=== PATIENT | male | born 1950 | race Caucasian/White ===

== ENCOUNTER → 2021-03-25 20:02 | Outpatient (ROUT) | payer MEDICARE, OTHER, SELFPAY ==
[2021-03-25 21:18] LABS: COVID19 -Nasal RAPID Negative (Negative)
== END ==
PROVIDERS: PCP Family Medicine; Visit Provider Specialist
DX: Z20.822 Contact with and (suspected) exposure to COVID-19 (principal)
CPT/HCPCS: 87635

== ENCOUNTER 2021-03-28 11:05 | Day surgery (SDC) | payer MEDICARE, OTHER, SELFPAY ==
[2021-03-26 10:42] VITALS: BMI 48.0
== END 2021-03-28 11:10 | disposition home or self-care (01) ==
PROVIDERS: Referring Provider Specialist; Visit Provider Specialist
DX: Z53.09 Procedure and treatment not carried out because of other contraindication (principal)

== ENCOUNTER 2021-04-04 10:42 | Day surgery (SDC) | payer MEDICARE, OTHER, SELFPAY ==
[2021-03-28 14:25] VITALS: BMI 48.0
--- NOTE | 2021-04-04 | PATH_ITS ---
[facility] Accession Number: [id number] . 01 Material submitted: . PART A: breast - RIGHT AXILLARY LYMPH NODE PART B: breast - RIGHT AXILLARY LYMPH NODE . 01 Clinical history: . CLINICAL: HX MELANOMA BACK. DIFFUSE ADENOPATHY (MELANOMA EXCISED) YEARS AGO . 01 Diagnosis: A, B. Right Axillary Lymph Nodes, Excision: Benign lymph nodes with fatty changes, and reactive sinus histiocytosis, see microscopic description. Negative for hematolymphoid malignancy. Negative for metastatic carcinoma or malignant melanoma (history of melanoma). [facility] 04/14/2021 1247 Local . 01 Comment: Concurrent flow cytometry did not reveal an abnormal B-cell or atypical T-cell population (see complete flow cytometry report, [id number], for details). . 01 Electronically signed: . Poli Morales MD, Pathologist NPI- [id number] . 01 Gross description: . A. The specimen is received in formalin, labeled right axillary lymph node, and consists of an 8.0 x 2.5 x 2.0 cm prajapati-yellow fragment of adipose tissue which is sectioned to reveal two lymph nodes measuring 2.0 x 1.5 x 1.0 cm and 3.0 x 1.5 x 1.0 cm. The lymph nodes are entirely submitted. . A1-A2: Smaller lymph node. A3-A5: Larger lymph node. . B. The specimen is received in formalin, labeled right axillary lymph node, and consists of a 3.0 x 1.2 x 0.5 cm prajapati lymph node which is trisected and entirely submitted in cassette B1. . Also received are two alcohol-fixed slides and two dry slides labeled right breast. These slides are forwarded to Histology and Cytology. (EA:[id number]) /[facility] 04/05/2021 [facility]9 Local . 01 Microscopic: . Microscopic examination of the lymph nodes reveals extensive replacement by adipose tissue. In areas of preserved lymphoid tissue, there are reactive changes consistent with reactive sinus histiocytosis. There are open sinuses and rare collections of histiocytes with pigment were noted. Due to the patient's history of malignant melanoma, and to better evaluate the architecture (and rule out the possibility of an occult hematolymphoid malignancy), a panel of immunostains is performed with the following results: . CD3 (A5) - T-lymphocytes positive. CD5 (A5) - T-lymphocytes positive. Negative for aberrant coexpression on the B-lymphocytes. CD20 (A5) - B-lymphocytes positive. CD23 (A5) - Follicular dendritic meshwork positive, maintained. BCL2 (A5) - T-lymphocytes positive, negative for aberrant coexpression on the B-lymphocytes and negative on the germinal centers of the reactive follicles. BCL6 (A5) - Few lymphoid follicles positive. Ki-67 (A5) - Low proliferation on the lymphocytes (germinal centers positive). Cyclin D1 (A5) - Negative for aberrant coexpression on the B-lymphocytes. Valle and lambda light chain immunostains: Subsets of plasma cells are positive, supporting reactive, polyclonal plasma cells. JANNA (fontaine epithelial marker, A5) - Negative. This result does not support metastatic carcinoma. HMB45 (A5 and B1) - Negative. This result does not support metastatic malignant melanoma. CD68 (A5, B1) - Histiocytes positive. . . Overall, these immunohistochemical results support benign lymph nodes with reactive changes, including reactive sinus histiocytosis. There is no evidence for metastatic malignant melanoma and no evidence for metastatic carcinoma. . Clinical and radiologic correlation is recommended. . * This test was developed and its performance characteristics determined by [employer]. It has not been cleared or approved by the U.S. Food and Drug Administration. The FDA has determined that such clearance or approval is not necessary. This test is used for clinical purposes. It should not be regarded as investigational or for research. . 01 Pathologist provided ICD-10: R59.9 . 01 CPT . 227944, 259350, J79668, T46959 Performed at: 01 [facility] [address] [place] [address] [address], [place], [place] [id number] MD Michael Duran MD Phone: [phone]
[2021-04-04 11:25] VITALS: BP 155/94; PULSE 72; RESP 13; TEMP 36.8; O2SAT 97; BMI 48.0
[2021-04-04 11:34] LABS: COVID19 -Nasal RAPID Negative (Negative)
[2021-04-04] MEDS: LACTATED RINGERS 1,000 ML 42 ML IV (11:34)
--- NOTE | 2021-04-04 12:35 | PM.PREOP ---
Pre-operative Note COVID-19 COVID-19 status: Negative Result date/Date tested (Pos, Neg/Pending): 04/04/21 Interval Note History & Physical reviewed/Exam performed by Physician: Yes Changes to H&P: No
[2021-04-04] MEDS: CEFAZOLIN 2 GM/100 ML FROZ.PIGGY IV (12:54)
--- NOTE | 2021-04-04 13:13 | SUR.OPER ---
Supine on padded OR bed, head on pillow, arms secured on padded arm boards at <90 degrees abduction, legs uncrossed, safety belt at thigh, tape over blanket over lower legs.
[2021-04-04] MEDS: BUPIVACAINE 0.5% (PF) VIAL 30 ML INJ (13:19)
[2021-04-04 14:08] VITALS: BP 135/76; PULSE 80; RESP 10; TEMP 36.2; O2SAT 95
[2021-04-04 14:13] VITALS: BP 138/74; PULSE 82; RESP 10; O2SAT 97
[2021-04-04 14:18] VITALS: BP 140/79; PULSE 77; RESP 10; O2SAT 97
[2021-04-04 14:23] VITALS: BP 138/83; PULSE 74; RESP 10; TEMP 36.6; O2SAT 96
[2021-04-04 14:28] VITALS: BP 140/80; PULSE 77; RESP 12; TEMP 36.6; O2SAT 97
--- NOTE | 2021-04-04 17:07 | PM.OP.1 ---
Operative Date/Time/Diagnoses Date of procedure: 04/04/21 Time of procedure: 14:00 Pre-op diagnosis: Enlarged lymph nodes diffuse Post-op diagnosis: same Procedure & Clinicians Procedure: Excision of right axillary deep lymph node Same procedure as scheduled: Yes Indications: Diagnostic Surgeon: Adiel Smalls Click Yes if Unassisted: Yes Anesthesia Type: General Operative Notes Findings: Enlarged (5 cm) node which appeared to be fatty replaced. Other palpably enlarged nodes nearby. Closure Type: primary Specimen(s): other (Node portion sent in formalin, fixative for flow cytometry, wet and dry prep slides) Prosthetic devices, grafts, tissues, transplants, or devices: None Estimated Blood Loss (mL): 10 Blood products transfused: none Procedure in detail: The patient was placed supine on the operating room table. He underwent general LMA anesthesia was prepped and draped in the usual fashion. The right arm was placed up near the head and band in order to gain access to his axilla. He would have otherwise difficult to access is axilla due to his size. He was prepped and draped. Local anesthetic was infiltrated overlying and node in the inferior axilla. Transverse incision was made and carried down through fascia into the axilla proper. I readily identified enlarged node which I dissected from surrounding structures. Structures going to the node were lower than leaving it were ligated with 3-0 Vicryl ties. The node was removed and submitted in various specimen containers. It was also sent for fungus and TB culture. Both I think are unlikely though possible. The wound was irrigated. Meticulous hemostasis was achieved. The fascia was closed with interrupted 3-0 Vicryl. The subcu was closed with interrupted 3-0 Vicryl. The skin was closed running 4-0 Vicryl subcuticular stitch and Steri-Strips. Dressing was applied and the patient was taken extubated to the recovery room in good condition Complications: none Post-operative Condition: stable Disposition: PACU
== END 2021-04-04 14:40 | disposition home or self-care (01) ==
PROVIDERS: Admitting Provider Anesthesiology; Referring Provider Specialist; Visit Provider Specialist
PROC: (CPT 38525; principal; 2021-04-04 12:45)
DX: R59.0 Localized enlarged lymph nodes (principal); E66.9 Obesity, unspecified; G47.33 Obstructive sleep apnea (adult) (pediatric); I10 Essential (primary) hypertension
CPT/HCPCS: 38525; 87102; 87116; 87206; 87635; J0330; J0360; J0690; J1100; J1885; J2405; J2704; J3010

== ENCOUNTER → 2021-04-17 10:27 | Outpatient (CLI) | payer MEDICARE, OTHER, SELFPAY ==
[2021-04-17 11:45] LABS: Hemoglobin A1C% w Est Avg Glu 5.4 % (4.0-6.0)
[2021-04-17 12:16] LABS: BUN Creatinine Ratio 32.7 (6-22); Blood Urea Nitrogen 18 mg/dL (9-20); Calcium 10.4 mg/dL (8.4-10.2); Carbon Dioxide 28 mmol/L (22-32); Chloride 103 mmol/L (98-107); Estimated Glomerular Filt Rate > 60.0 mL/min (>60); Glucose 95 mg/dL (80-110); HEMOLYSIS < 15 (0-50); Potassium 3.6 mmol/L (3.4-5.1); Sodium 139 mmol/L (137-145)
== END ==
PROVIDERS: Referring Provider Internal Medicine; Visit Provider Internal Medicine
DX: R73.01 Impaired fasting glucose (principal); E83.52 Hypercalcemia
CPT/HCPCS: 36415; 80048; 83036

== ENCOUNTER → 2022-02-24 09:43 | Outpatient (CLI) | payer MEDICARE, OTHER, SELFPAY ==
[2022-02-24 19:06] LABS: Add Manual Diff / Slide Review NO; Basophils Absolute Auto 0 /uL (0-100); Basophils Percent Auto 0.3 % (0-2); Eosinophils Absolute Auto 100 /uL (0-450); Eosinophils Percent Auto 2.8 % (2-4); Hematocrit 45.9 % (41-53); Hemoglobin 15.6 g/dL (13.5-17.5); Lymphocytes Absolute Auto 1600 /uL (1100-4500); Lymphocytes Percent Auto 32.7 % (25-40); Mean Corpuscular Hemoglobin 30.4 PG (26-34); Mean Corpuscular Volume 89.4 fL (80-100); Monocytes Absolute Auto 400 /uL (0-900); Monocytes Percent Auto 8.2 % (3-14); Neutrophils Absolute Auto 2700 /uL (1500-7000); Platelet Count 179 X10^3/uL (150-400); Red Blood Cell Count 5.14 X10^6/uL (4.5-5.9); White Blood Cell Count 4.8 X10^3/uL (4.5-11.0)
[2022-02-24 19:20] LABS: Hemoglobin A1C% w Est Avg Glu 5.7 % (4.0-6.0)
[2022-02-24 19:21] LABS: Alanine Aminotransferase 32 IU/L (<50); Albumin 4.5 g/dL (3.5-5.0); Albumin Globulin Ratio 1.8 (1.0-2.8); Alkaline Phosphatase 89 U/L (38-126); Aspartate Aminotransferase 35 IU/L (17-59); BUN Creatinine Ratio 17.2 (6-22); Bilirubin Total 1.2 mg/dL (0.2-1.3); Blood Urea Nitrogen 11 mg/dL (9-20); Calcium 10.3 mg/dL (8.4-10.2); Carbon Dioxide 26 mmol/L (22-32); Chloride 101 mmol/L (98-107); Cholesterol 170 mg/dL (140-199); Estimated Glomerular Filt Rate > 60.0 mL/min (>60); Globulin 2.5 g/dL (1.7-4.1); Glucose 101 mg/dL (80-110); HDL Cholesterol 64 mg/dL (40-60); HEMOLYSIS < 15 (0-50); LDL Cholesterol Calculated 89 mg/dL (<100); Potassium 3.6 mmol/L (3.4-5.1); Sodium 138 mmol/L (137-145); Triglycerides 86 mg/dL (35-150)
[2022-02-24 19:40] LABS: Thyroid Stimulating Hormone 4.42 uIU/mL (0.47-4.68)
[2022-02-24 19:41] LABS: Prostate Specific Antigen 2.96 ng/mL (0.10-4.00)
== END ==
PROVIDERS: PCP Family Medicine; Visit Provider Internal Medicine
DX: E78.5 Hyperlipidemia, unspecified (principal); N40.0 Benign prostatic hyperplasia without lower urinary tract symptoms; R73.01 Impaired fasting glucose; I10 Essential (primary) hypertension; R53.83 Other fatigue
CPT/HCPCS: 80053; 80061; 83036; 84153; 84443; 85025

== ENCOUNTER → 2022-11-16 15:10 | Outpatient (CLI) | payer MEDICARE, OTHER, SELFPAY ==
[2022-11-16 16:52] LABS: COVID19 -Nasal RAPID Negative (Negative)
== END ==
PROVIDERS: PCP Internal Medicine; Visit Provider Surgery
DX: Z01.812 Encounter for preprocedural laboratory examination (principal); Z20.822 Contact with and (suspected) exposure to COVID-19
CPT/HCPCS: 87635; C9803

== ENCOUNTER 2022-11-18 13:55 | Observation (INO) | payer MEDICARE, OTHER, SELFPAY ==
[2022-11-12 08:36] VITALS: BMI 48.4
[2022-11-17] VITALS (20 sets, daily range): BP systolic 100–164; BP diastolic 53–90; PULSE 66–89; RESP 9–23; TEMP 36.3–36.8; O2SAT 91–100; BMI 46.5
[2022-11-17] MEDS: LACTATED RINGERS 1,000 ML 42 ML IV ×3 (07:16→11:54)
--- NOTE | 2022-11-17 07:52 | PM.PREOP ---
Pre-operative Note COVID-19 COVID-19 status: Negative Interval Note History & Physical reviewed/Exam performed by Physician: Yes Changes to H&P: No
--- NOTE | 2022-11-17 08:02 | SUR.OPER ---
Supine on pink padded OR bed, head on pillow, arms padded and tucked at sides, legs uncrossed, safety belt at thigh, tape over blanket over lower legs .
[2022-11-17] MEDS: CEFAZOLIN 3 GM IN 0.9 % NACL 3 GM/100 ML PLAST..BAG IV ×2 (08:35→14:30)
[2022-11-17] MEDS: BUPIVACAINE 0.5% W/ EPI (PF) 30 ML VIAL INJ (09:21)
--- NOTE | 2022-11-17 15:31 | SUR.PHASEI ---
1457: Pt reporting that he feels like he needs more air. Pt sating 97% on 6L Nasal Cannula. RT Called and pt placed on home CPAP. Pt satiing 95% on CPAP.
--- NOTE | 2022-11-17 17:16 | P.OP_ITS ---
Operative Date/Time/Diagnoses Date of procedure: 11/17/22 Pre-op diagnosis: Left symptomatic recurrent inguinal hernia. Right asymptomatic recurrent hernia seen on ultrasound. Procedure & Clinicians Procedure: Bilateral laparoscopic inguinal hernia repair Same procedure as scheduled: Yes Indications: In particular the left inguinal hernia has been very symptomatic from Mr. Meraz. I discussed with him the risks benefits and alternatives to proceeding with repair. He prefers a laparoscopic repair and due to the fact that this hernia is recurrent and possibly bilateral laparoscopic is an excellent choice. Surgeon: Mi Mohr Senior Portfolio Manager: Merissa Koehler Anesthesia Type: General Operative Notes Findings: There was a very large left inguinal hernia which took a lot of effort to reduce the the technical laboratory asst was having some shoulder issues and so having an experienced surgeon come and help with assisting retraction and camera operation was invaluable and completely necessary due to the level of complexity. The right side did have a hernia present though it was small, there was some scar tissue associated with that side as well. Procedure in detail: Patient was taken to the operating room and placed supine in the operating room table. Preoperative antibiotics of 3 g of Ancef was provided. Time-out was performed. Bilateral SCDs were on and running general endotracheal anesthesia was induced. The patient had a very small umbilical hernia which was used as an access point to the abdomen. An incision was made just above the umbilicus and carried down through the subcutaneous tissues. The fascial layer was grasped with 2 Gina retractors and elevated. Two stay sutures were placed through the fascial layer. The fascia was then opened and the abdomen was entered. The Deysi trocar was placed and the umbilical hernia sac made the entry difficult and unfortunately preperitoneal space was insufflated on the 1st attempt at entry. I opened the umbilical incision slightly further to make sure that I could sweep down all of the umbilical hernia sac and adhesions around that umbilical process. I was then able to enter and insufflate the abdomen normally. It did cause a little bit of difficulty having had the preperitoneal space insufflated because the peritoneum was then falling down and made viewing the area difficult. Ultimately, I did have to place a 2nd accessory trocar on the right side of the abdomen in order to retract this tissue and to better visualize the hernia and the critical structures on the left side. I placed 2x 5 mm accessory trocars on either side of the abdomen initially in the normal places after local anesthetic and under direct visualization. The dissection on the left side was difficult due to the large hernia sac and the adhesions from previous surgeries. It took much longer than the usual period of time to fully reduce the hernia sac. However eventually the sac was reduced and a large inguinal mesh was placed with the medial portion on the pubic tubercle, covering both the direct and indirect spaces. The peritoneum was then closed over top using a running V lock suture. The peritoneum was very weak from stretching of the hernia and the previous insufflation and so the suturing was difficult as well. Next the attention was turned to the right side. Throughout the case the patient was positioned with his head down and according to the anesthesia provider he had some CO2 retention and so the position was changed with less head down to correct this, and the suboptimal position also contributed to the difficulty of the case. The right side was addressed in the normal fashion making an incision in the peritoneum over an inguinal hernia that was confirmed on the right side. The flap was then raised and the structures identified. Hernia sac was seen entering the direct space and easily reduced. I did have to cut some scar tissue that was adhered to the area. The cord structures were preserved and a medium-sized mesh in this case was placed with the medial portion on the pubic tubercle and covering the direct and indirect spaces. The peritoneum again was closed with a running V lock suture and the same difficulty with the peritoneum and suture was experienced, however I placed the mesh in a good place and held both bilateral meshes in place as the abdomen was desufflated and the peritoneum did cover the mesh at the end of the case. Patient tolerated the desufflation well. There was some testicular air at the end of the case within normal limits. The skin of the 3 accessory trocars was closed with running Monocryl sutures and dressed with Steri-Strips. The umbilical incision was closed with 3 interrupted [id number] 0 Vicryl sutures. The skin was then closed with a running Monocryl and dressed with Steri-Strips. Patient tolerated the procedure well and went in good condition to the postoperative care unit. Due to long length of case and technical difficulties described I anticipate more than postoperative pain, as well as the co2 retention, and will likely admit for observation. Post-operative Condition: stable
[2022-11-17] MEDS: DOCUSATE 100 MG CAPSULE PO (21:32)
[2022-11-17] MEDS: ACETAMINOPHEN 325 MG TABLET 975 MG PO (21:33)
[2022-11-17] MEDS: IBUPROFEN 400 MG TABLET 800 MG PO (21:49)
[2022-11-18 00:38] VITALS: BP 122/65; PULSE 68; RESP 17; TEMP 36.7; O2SAT 97
[2022-11-18] MEDS: ACETAMINOPHEN 325 MG TABLET 975 MG PO ×3 (03:13→15:25)
[2022-11-18] MEDS: IBUPROFEN 400 MG TABLET 800 MG PO ×4 (03:13→20:20)
[2022-11-18 03:27] VITALS: BP 137/69; PULSE 67; RESP 17; TEMP 36.4; O2SAT 99
[2022-11-18] MEDS: DOCUSATE 100 MG CAPSULE PO ×2 (09:45→20:20)
[2022-11-18] MEDS: hydroCHLOROthiazide 25 MG TABLET PO (09:45)
[2022-11-18 09:48] VITALS: BP 130/69; PULSE 62
[2022-11-18] MEDS: LOSARTAN 50 MG TABLET 100 MG PO (09:48)
[2022-11-18 10:00] VITALS: RESP 17; TEMP 36.5
--- NOTE | 2022-11-18 10:29 | P.PN_ITS ---
Exam Vital Signs (past 8 hours): - 11/18/22 03:27 11/18/22 09:48 Temperature 97.6 F Pulse Rate 67 62 Respiratory Rate 17 Blood Pressure 137/69 130/69 Pulse Oximetry 99 Oxygen Delivery Method Nasal Cannula,CPAP Oxygen Flow Rate 2 Narrative Exam Narrative: Patient overall feeling well. Has not yet been out of bed and no bowel movement yet. At rest pain is controlled. However mobility is a serious issue. Const General: cooperative, healthy appearing and comfortable Nutritional Appearance: obese HENMT Head: normal to inspection Resp Effort & Inspection: normal respiratory effort and able to speak in complete sentences GI Palpation: soft, tender and other Other: Appropriately tender. There is some distention and gas in the abdomen and testicles. Skin Other: The wounds are clean dry and intact with some ecchymoses within normal limits surrounding them. There are 2 incisions of about 2 cm on the right side 1 in the umbilical region about 3-4 cm in size and another on the left side. [facility] Medical History (Updated 11/18/22 @ 10:28 by Mi Mohr MD) BCC (basal cell carcinoma of skin) HLD (hyperlipidemia) HTN (hypertension) Melanoma (2019) FREDERICK treated with BiPAP Surgical History (Updated 11/12/22 @ 08:49 by Deedee Preston RN) H/O vasectomy History of hip surgery Hx of bilateral inguinal hernia repair Hx of lymph node biopsy (04/04/21) Hx of melanoma excision (10/24/20) Family History Father Hypertension Heart disease Prostate cancer Social History marital status: household members: spouse occupational status: previously employed Smoking Status: Never smoker alcohol intake: current substance use type: does not use Assessment & Plan Post-op Postoperative Procedures: Procedures Operation Date: 11/17/22 07:45 Actual Procedure Side Surgeon p Laparoscopic Inguinal Hernia Repair Bilateral Mi Mohr MD Postoperative day: 1 Postoperative status: doing well Postoperative status narrative: Patient requires of physical therapy eval prior to discharge. Also I am afraid that his pain will not be adequately controlled today. Of note there is still a lot of snow out and though this is not affecting the decision to keep the patient another night it would make it difficult for him with his mobility so limited at this time. That is why I am asking the physical therapist to make sure that he is strong enough and his pain is controlled enough that he could be discharged home versus to facility where he would recover with more help. 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 Will start DVT prophylaxis and continue pain medication regimen. Follow-up on physical therapy consult anticipate discharge home tomorrow.
--- NOTE | 2022-11-18 11:21 | CM.DANOTE ---
DCP: Case received, EMR reviewed and met with patient. Introduced self and role. Was able to obtain information regarding patient's baseline activity status prior to hospitalization. DCP assessment completed with information currently available. Patient is a 71 year old male who admitted yesterday morning to the care of the surgical team. PCP: Dr. Harman. Payer: confirmed: Medicare/[employer] PPO. Patient came to the hospital for a surgical procedure. Patient had laparoscopic inguinal hernia repair. Met with patient in his room. He is alert and oriented, pleasant, and was sitting up in bed. Patient resides on [facility] in [place], with spouse, Angel. He is independent at his baseline. P: Surgeon has ordered P.T, to see how patient does with mobilization. Her notes indicate home versus long-term. Will see how he does with P.T. Gia Lopez RN/Sales Demonstrator Discharge Planning/Care Management Advanced directive, confirm from FAMILY Start: 11/17/22 18:26 Freq: Q24H Status: Active Protocol: Document 11/17/22 18:27 CLP (Rec: 11/17/22 18:28 CLP [id number]) Advance Directive, confirm on record Time 18:27 Person contacted patient Copy received No CM Discharge Assessment Start: 11/18/22 11:20 Freq: Status: Active Protocol: Document 11/18/22 11:20 (Rec: 11/18/22 11:21 [id number]) Discharge Planning Assessment Assigned Carpet Journeyman Gia Lopez RN/Sales Demonstrator Advance Directives? Yes Advance Directives on File No History Provided By Patient,Medical Record Prior Living Arrangements House Household Members spouse Type of transporation used prior to Drives own vehicle admit Independent with ADL's Yes Is patient alert and oriented? Yes Caregiver for Another No Barriers to Discharge No Discharge Plan Home Transportation Arrangement Spouse Referrals Initiated None needed Whiteboard Updated in Patient Room with Yes name and ext. # of Carpet Journeyman Review Status In Process Next Review Type Continued Stay Review Pre-Anesthesia Assessment Start: 11/12/22 08:36 Freq: Status: Active Protocol: Document 11/12/22 08:36 CAB (Rec: 11/12/22 08:49 CAB [id number]) Pre-Anesthesia Assessment Patient Information Reviewed Via Chart Review Comment COVID screen @ 11/16/22 Seen Specialist in Last 12 Months Yes Specialist Seen General surgeon,Urologist Primary Language Faroese Bartender Helper Required No Height 5 ft 5 in Weight 291 lb Body Mass Index (BMI) 48.4 Visual Assist Contacts,Glasses Barriers to Learning None Hx Anesthesia Reactions No Hx Family Anesthesia Reaction No Hx Malignant Hyperthermia No Hx Blood Transfusions No Anesthesia Review Requested No Class 1 Owner Operator No alcohol intake current Alcohol Intake Frequency Other: Occasional Smoking Status Never smoker Substance Use Type does not use Patient is completely paralyzed or No completely immobile Mental Status Oriented to own ability Does patient have PEREZ/SOB No Hx Sleep Apnea Yes: BiPAP CPAP/BIPAP use prescribed and used routinely Currently Taking a Beta Cait No Hx Chest Pain No Hx SOB No Hx Syncope or Dizziness No Anti-Coagulant Therapy No Cardiac Testing No Hx Pacemaker/ICD No Pacemaker Rep Required? No Urinary Catheter Present No Hx Urinary Self Catheterization No Diabetes No Presence of External or Internal Medical Yes: bilateral total hip Devices repair? Marital Status Lives With spouse Patient Discharge Plan Description Return Home Comment Lives on [facility] Advance Directives? Yes Power of Interior Systems Carpenter Yes Power of Interior Systems Carpenter Name Angel Meraz Power of Interior Systems Carpenter
--- NOTE | 2022-11-18 12:15 | PT.IIE ---
Current Diagnoses Morbid (severe) obesity due to excess calories (11/17/22) Unilateral inguinal hernia, without obstruction or gangrene, not specified as recurrent (11/17/22) Surgery Performed Operation Date: 11/17/22 07:45 Actual Procedures p Laparoscopic Inguinal Hernia Repair(Bilateral) - Mi Mohr MD Surgical History (Last Updated 11/12/22 @ 08:49 by Deedee Preston RN) H/O vasectomy History of hip surgery Hx of bilateral inguinal hernia repair Hx of lymph node biopsy (04/04/21) Hx of melanoma excision (10/24/20) Medical History (Last Updated 11/12/22 @ 08:49 by Deedee Preston RN) BCC (basal cell carcinoma of skin) HLD (hyperlipidemia) HTN (hypertension) Melanoma (2019) FREDERICK treated with BiPAP Physical Therapy Inpatient Evaluation/Re-Eval M1 PT/OT-IP Prior Functional Status Start: 11/18/22 13:54 Freq: NEEDED Status: Active Protocol: Document 11/18/22 12:15 AB (Rec: 11/18/22 14:04 AB [facility]) Medical Review Prior Functional Status Medical History Reviewed Yes Communication able to make needs known Mobility and Gait pt stated that he is independent with all mobilities and ambulation without AD Social History Household Members spouse Living Arrangements House Number of Floors (Floors) One Floor Number of Stairs To Enter/Railing? no steps to enter Home Environment High Toilet,Walk in Shower Home Equipment Straight Cane,Hand Held Shower Additional Social History Comment pt has an adjustable bed M2 PT-IP Current Condition Start: 11/18/22 13:54 Freq: NEEDED Status: Active Protocol: Document 11/18/22 12:15 AB (Rec: 11/18/22 14:04 AB [email or web address]) Physical Therapy Current Condition Current Condition Evaluation Date 11/18/22 Treatment Diagnosis s/p L inguinal hernia repair; difficulty in walking Onset Date 11/17/22 M3 PT-IP Subjective Start: 11/18/22 13:54 Freq: NEEDED Status: Active Protocol: Document 11/18/22 12:15 AB (Rec: 11/18/22 14:04 AB [email or web address]) Subjective Physical Therapy Visit Type Type Initial Evaluation Visit Start Time 12:15 Visit Stop Time 12:35 Total Visit Minutes 20 Number of FISH AND WILDLIFE BIOLOGIST Visits 0 Physical Therapy Visit Comments Patient Comments agreeable to do PT Therapy Pain Assessment Location Abdomen Scale Used slight pain during mobility Description With Movement Pain Management Techniques Modification of Treatment,Re- positioning,Timing of Activity with Medications M4 PT-IP Mobility and Gait Start: 11/18/22 13:54 Freq: NEEDED Status: Active Protocol: Document 11/18/22 12:15 AB (Rec: 11/18/22 14:04 AB [email or web address]) PT-Bed Mobility Assessment Supine to Sit Supine to Sit Minimal Assistance,Head of Bed Elevated PT-Transfer Assessment Sit to and From Stand Sit to and from Stand Standby Assistance Equipment Transfer Assistive Device None,Gait Belt Orthotic/Prosthetic Devices or Brace: No Transfers Transfer Destination Chair Transfer Technique ambulated Transfer Ability Level of Assist Standby Assistance Comments Mobility Comments pt complete supine to sit min A with HOB elevated. pt has an adjustable bed and pt stated that his spouse will be able to assist him. able to sit on EOB SBA. completed sit to stand SBA and ambulated in room without AD ~ 30 ft. presents with antalgic gait but without LOB. pt requested to use the toilet and ambulated to the toilet. able to complete toileting needs and handwashing without assistance. pt ambulated more in room and agreed to sit on the chair afterwards. informed pt regarding mobility needs for recovery and pt is cleared to move independently in room and to ask for assistance when needed. pt declined caregiver training for bed mobility and stated that his spouse will be able to assist him. informed nurse . Gait Assessment Gait Gait Assistance Required: Standby Assistance Able to Maintain Weight Bearing Status Yes During Gait Assistive Devices Assistive Device None,Gait Belt Orthotic/Prosthetic Devices or Brace: No Gait Deviations General Gait Pattern Antalgic,Decreased Stride Length,Decreased Feet Clearance,Step-to Gait,Wide Based Gait Factors Limiting Gait Function Factors Limiting Gait Function Decreased Activity Tolerance, Decreased Strength,Limited Range of Motion,Poor Balance PT-Balance Assessment Sitting Balance and Reactions Static Sitting Balance Ability Normal Dynamic Sitting Balance Ability Normal Standing Balance and Reactions Static Standing Balance Ability Good Dynamic Standing Balance Ability Good Device Used without AD M5 PT-IP Objective Assessments Start: 11/18/22 13:54 Freq: NEEDED Status: Active Protocol: Document 11/18/22 12:15 AB (Rec: 11/18/22 14:04 AB [email or web address]) Orientation Orientation/Cognition Level of Alertness Alert Orientation Name,Age,Place,Situation Language Function Ability No Deficits Noted Safety Awareness Understands Safety Issues Memory Description No Deficits Noted Gross Range of Motion Lower Extremity ROM Assessment Within Functional Limits Strength Lower Extremity Strength Hip 3+/5 Knee 4-/5 Sensation Assessment Sensation Gross Sensation WNL Muscle Tone Muscle Tone WNL Yes M6 PT-IP Treatment Start: 11/18/22 13:54 Freq: NEEDED Status: Active Protocol: Document 11/18/22 12:15 AB (Rec: 11/18/22 14:04 AB [id number]) Physical Therapy Treatment Education Education Provided Safety M7 PT-IP Assessment and Plan Start: 11/18/22 13:54 Freq: NEEDED Status: Active Protocol: Document 11/18/22 12:15 AB (Rec: 11/18/22 14:04 AB [email or web address]) PT Summary Assessment and Plan Potential Rehabilitation Potential Good Status of Condition at Evaluation Stable Summary Impairments Pain,ROM,Strength,Balance, Coordination,Sensation,Tone, Cognition,Bed Mobility, Transfers,Gait,Activity Tolerance Assessment Summary PT eval completed. pt is cleared to be independent with ambulation in room and nurse is aware. pt plans to go home with spouse to assist him and at this time no further PT intervention needed. Frequency of Treatment Frequency Of Treatment Discharge Recommendations To Nursing Amount of Assist Needed Standby Assistance Discharge Recommendations PT Discharge Recommendations Home with Assistance Transportation Needs at Discharge Private Vehicle
--- NOTE | 2022-11-18 12:20 | DIET.CONS ---
Dietary Consultation Note Admission Date: Assessment: 71y M admitted for elective hernia repair referred to nutrition by surgery for nutrition education on weight reduction. RD met with and pt at bedside. Pt verbalizes he is not too concerned with his weight. RD provided education on risk of further herniation r/t body habitus. Educated pt on post-operative tissue healing with goal of prioritizing lean protein and vegetables at each eating occasion. Provided visual learning on appropriate portion sizes including palm sized protein, two fists of vegetables and one fist of carbohydrates at meals. Pts spouse asked about avoiding beans/legumes due to gas forming properties. Encouraged pt to consume beans/legumes due to their high fiber and high protein content but to start with small portion to assess for tolerance. Encouraged pt to avoid all sugar sweetened beverages and refined carbohydrates. Pt okay to substitute a bariatric ONS for one meal daily to help with weight loss, initial goal is -10% body weight or 12kg in 6mo. Unfortunately pts insurance does not cover weight management, however, pt may elect to pay out of pocket for services as desired. Ht: 165.1 cm Wt: 127.006 kg BMI: 46.5 Last BM: 11/17/22 (11/17/22 18:18) MNA: 13 Silver Score: 22 Diet: 11/17/22 Dinner Heart Healthy Diet Diet Modifications: Electronically Signed by: Talia Jolly 11/18/22 12:20 Clinical Dietitian [address] [id number]
[2022-11-18] MEDS: ALFUZOSIN 10 MG 10 EACH PO (15:25)
[2022-11-18 16:00] VITALS: BP 136/60; PULSE 81; RESP 17; TEMP 36.3; O2SAT 99
[2022-11-18 20:00] VITALS: BP 130/57; PULSE 60; RESP 19; TEMP 36.4; O2SAT 99
[2022-11-18] MEDS: ENOXAPARIN 30 MG/0.3 ML SYRINGE SUBCUT (20:20)
[2022-11-18] MEDS: ATORVASTATIN 20 MG TABLET 40 MG PO (20:22)
[2022-11-18] MEDS: FINASTERIDE 5 MG TABLET 10 MG PO (20:22)
[2022-11-18] MEDS: AMLODIPINE 5 MG TABLET PO (20:23)
[2022-11-19 05:00] VITALS: BP 130/51; PULSE 61; RESP 19; TEMP 36.4; O2SAT 98
[2022-11-19] MEDS: ALFUZOSIN 10 MG 10 EACH PO (08:47)
[2022-11-19 08:48] VITALS: BP 130/51
[2022-11-19] MEDS: LOSARTAN 50 MG TABLET 100 MG PO (08:48)
[2022-11-19] MEDS: hydroCHLOROthiazide 25 MG TABLET PO (08:48)
[2022-11-19] MEDS: ENOXAPARIN 30 MG/0.3 ML SYRINGE SUBCUT (08:48)
[2022-11-19] MEDS: DOCUSATE 100 MG CAPSULE PO (08:48)
[2022-11-19] MEDS: ACETAMINOPHEN 325 MG TABLET 975 MG PO (08:50)
--- NOTE | 2022-11-19 11:30 | P.DS_ITS ---
History of Present Illness History of Present Illness Chief complaint: [facility] [place] Narrative: Mr. Meraz presented to my office 10/20/22 with an ultrasound done by his urologist that shows a fat containing left inguinal hernia, there is also a smaller right sided inguinal hernia seen.? Mr. Meraz explains that he has been h aving discomfort on the left side that has been present for at least several months maybe up to a year but is definitely getting worse and more bothersome over the last few months.? He has a history with this hernia: in his 20s he had a bilateral inguinal hernia repair. He is not sure but he thinks no mesh was placed.? He then had a recurrence in the mid to early 80s and the left side was repaired again at this time he is unsure but he thinks perhaps no mesh was used.? Over the last few years he had a stable situation with that left inguinal hernia, without symptoms, but now it is becoming bothersome.? Usually he is okay while walking, but he notices it when going up the stairs and specifically when moving around in certain ways.? He also notices that his left scrotum seems to be swollen and bigger; this bothers him as well.? He does note additionally that he is had a vasectomy in the and the surgeon noted some ?tissue? which gave him a difficult time with the procedure and caused some swelling of the testicle.? Other than the above-noted surgeries he is had no further abdominal surgeries. He had a hip surgery in the past and did well with that.? Overall he describes the symptoms as severe enough that it is indicated to proceed with a repair.? Discharge Providers Provider Date of admission: 11/18/22 13:55 Discharge Date: 11/19/22 Primary care physician: Adiel Harman MD Consults: 11/18/22 10:27 Consult to Dietitian, Adult Routine Comment: please provide info, resources, follow up if poss Reason For Exam: weight loss. Consult to Physical Therapy Evaluate & Treat Comment: Please eval if ok for home - -post op. Physician Instructions: Evaluate and Treat Discharge provider: Mi Mohr MD Summary Hospital Course Discharge Diagnosis: 1. Acute respiratory failure post op with retention of CO2. 2. Difficult post operative pain control. 3. Impaired mobility requiring PT evaluation with obesity and post operative pain. Hospital Course: Mr. Meraz was admitted post op for the above noted issues with recovery. On post op day one, he was tolerating a general diet and his pain was better controlled. His respiratory status had improved, but he had not been out of bed yet. He was kept for one more night because of mobility and anticipated need for pain control with increased mobility. Also to monitor for CO2 retention. Status at Discharge Cognitive/behavioral status at discharge: oriented and at baseline, oriented Functional status at discharge: independent ambulation Overall status at discharge: patient is back to baseline Time Spent with Patient Time spent: Less than 30 minutes Exam Vital Signs (past 8 hours): - 11/19/22 05:00 11/19/22 07:43 11/19/22 08:48 Temperature 97.5 F L Pulse Rate 61 Respiratory Rate 19 Blood Pressure 130/51 L 130/51 L Pulse Oximetry 98 Oxygen Delivery Method Room Air Oxygen Delivery Method Room Air Oxygen Flow Rate 0 PFSH Medical History (Updated 11/18/22 @ 10:28 by Mi Mohr MD) BCC (basal cell carcinoma of skin) HLD (hyperlipidemia) HTN (hypertension) Melanoma (2019) [facility]ERICK treated with BiPAP Surgical History (Updated 11/12/22 @ 08:49 by Deedee Preston RN) H/O vasectomy History of hip surgery Hx of bilateral inguinal hernia repair Hx of lymph node biopsy (04/04/21) Hx of melanoma excision (10/24/20) Family History Father Hypertension Heart disease Prostate cancer Social History marital status: household members: spouse occupational status: previously employed Smoking Status: Never smoker alcohol intake: current substance use type: does not use Discharge Plan Discharge Plan Patient Disposition: Home Discharge orders & Medications Prescriptions: New acetaminophen 325 mg Tablet 975 mg PO Q6H Qty: 30 0RF docusate sodium 100 mg Capsule 100 mg PO BID Qty: 30 0RF ibuprofen 400 mg Tablet 800 mg PO Q6H 14 Days Qty: 30 1RF oxycodone 10 mg Tablet 5 mg PO Q6H PRN (Reason: pain (scale score 7-10)) Qty: 10 0RF Rx Instructions: May take 1-2 tabs as needed. Continued losartan 100 mg tablet 100 mg PO DAILY hydrochlorothiazide 25 mg tablet 25 mg PO DAILY alfuzosin 10 mg tablet extended release 24 hr 10 mg PO DAILY Rx Instructions: administer after the same meal each day atorvastatin 40 mg tablet 40 mg PO DAILY doxycycline hyclate 100 mg capsule 100 mg PO DAILY finasteride 5 mg tablet 10 mg PO DAILY aspirin [Adult Aspirin Regimen] 81 mg tablet,delayed release (DR/EC) 81 mg PO DAILY amlodipine 5 mg tablet 5 mg PO DAILY Follow up/Referrals: Mi Mohr MD [Physician] - (7-10 days. Call the clinic with any questions or concerns: after hours, you can contact the surgeon educational paraprofessional with this number. Please don't hesitate to contact us anytime 21/06. If you are doing well, call to let us know you prefer telemedicine follow up!) Adiel Harman MD [Primary Care Provider] - Diet/Activity/Treatments Diet: Diet as Tolerated Diet comment: Even small amount of weight loss can make big difference in health. Visit Report/Discharge Packet Instructions: DI for Groin Hernia, DI for Hernia Repair, DI for Laparoscopy, DI for Prescription Opioid Use, [facility]: Wound Care Stand Alone Forms: Surgery Discharge Discharge Data Primary Care Provider: Adiel Harman I Attending Provider: Mi Mohr
[2022-11-19 12:15] VITALS: BP 136/67; PULSE 63; RESP 18; TEMP 36.9; O2SAT 94
--- NOTE | 2022-11-19 15:55 | PC.NURSE ---
1535-Discharge note. Patient given discharge instruction with present. IV discontinued and dressing applied. Patient and verbalize understanding of discharge. Patient home medication stored in pharmacy given to patient. Stable at time of discharge.
== END 2022-11-19 15:35 | disposition home or self-care (01) ==
LOC: OR 11-19 08:38 → AC 11-19 08:38
PROVIDERS: Admitting Provider Surgery; PCP Internal Medicine; Referring Provider Surgery; Visit Provider Surgery
PROC: 0YQ64ZZ Repair Left Inguinal Region, Percutaneous Endoscopic Approach (ICD-10-PCS; CPT 49651; principal; 2022-11-17 07:45)
DX: K40.91 Unilateral inguinal hernia, without obstruction or gangrene, recurrent (principal); G89.18 Other acute postprocedural pain; J96.02 Acute respiratory failure with hypercapnia; E66.9 Obesity, unspecified; Z68.42 Body mass index [BMI] 45.0-49.9, adult
CPT/HCPCS: 49651; 97161; G0378; J0330; J0690; J1100; J1650; J1885; J2250; J2405; J2704; J3010

== ENCOUNTER → 2023-04-22 10:46 | Outpatient (CLI) | payer MEDICARE, SELFPAY ==
[2022-11-17 18:18] VITALS: BMI 46.5
[2023-04-22 11:09] LABS: Appearance Urine UA CLEAR; Bilirubin Urine UA NEGATIVE (NEGATIVE); Color Urine UA YELLOW; Glucose Urine UA NEGATIVE (Negative); Ketones Urine UA NEGATIVE (NEGATIVE); Leukocyte Esterase Urine UA NEGATIVE (NEGATIVE); Nitrite Urine UA NEGATIVE (Negative); Occult Blood Urine UA NEGATIVE (Negative); Protein Urine UA NEGATIVE (Negative); Specific Gravity Urine UA <=1.005 (1.000-1.035); Urobilinogen Urine UA 0.2 E.U./dL (0.2); pH Urine UA 7.5 (4.5-8.0)
[2023-04-22 11:20] LABS: Bacteria Urine None Seen; RBC Urine None Seen (0-5/HPF); Squamous Epithelial Cell Urine None Seen (0-5/HPF); WBC Urine None Seen (0-5/HPF)
[2023-04-22 11:21] LABS: Culture Indicated Urine Cult Not Indicated
[2023-04-22 11:30] LABS: Add Manual Diff / Slide Review NO; Basophils Absolute Auto 0 /uL (0-100); Basophils Percent Auto 0.4 % (0-2); Eosinophils Absolute Auto 200 /uL (0-450); Eosinophils Percent Auto 3.4 % (2-4); Hematocrit 38.4 % (41-53); Hemoglobin 12.4 g/dL (13.5-17.5); Lymphocytes Absolute Auto 2200 /uL (1100-4500); Mean Corpuscular HGB Conc 32.2 % (30-36); Mean Corpuscular Hemoglobin 23.6 PG (26-34); Mean Corpuscular Volume 73.4 fL (80-100); Monocytes Absolute Auto 400 /uL (0-900); Monocytes Percent Auto 7.3 % (3-14); Neutrophils Absolute Auto 2200 /uL (1500-7000); Neutrophils Percent Auto 44.9 % (50-75); Platelet Count 194 X10^3/uL (150-400); Red Blood Cell Count 5.24 X10^6/uL (4.5-5.9); Red Cell Distribution Width 21.7 % (11.6-14.8)
[2023-04-22 11:49] LABS: Cholesterol 177 mg/dL (140-199); HDL Cholesterol 61 mg/dL (40-60); LDL Cholesterol Calculated 103 mg/dL (<100); Triglycerides 65 mg/dL (35-150)
[2023-04-22 12:01] LABS: Thyroid Stimulating Hormone 3.04 uIU/mL (0.47-4.68)
[2023-04-22 12:06] LABS: Anisocytosis 2+
[2023-04-22 12:07] LABS: Hypochromasia 1+; Microcytosis 1+; Poikilocytosis 1+
[2023-04-22 12:15] LABS: Prostate Specific Antigen 2.61 ng/mL (0.10-4.00)
== END ==
PROVIDERS: PCP Internal Medicine; Referring Provider Internal Medicine; Visit Provider Internal Medicine
DX: E78.2 Mixed hyperlipidemia (principal); N40.0 Benign prostatic hyperplasia without lower urinary tract symptoms; R53.83 Other fatigue
CPT/HCPCS: 36415; 80061; 81001; 84153; 84443; 85025